=== PATIENT | female | born 1965 | race Two or more races ===

== ENCOUNTER 2017-01-05 10:07 | Day surgery (SDC) | payer OTHER ==
[~2017-01-05] VITALS: Ht 160 cm; Wt 68.8 kg
[2017-01-05 11:25] VITALS: Ht 160 cm; Wt 68.8 kg
[2017-01-05] MEDS ORDERED: [UNRECOGNIZED DRUG - OTHER] (11:30)
[2017-01-05 11:51] VITALS: BP 122/64; PULSE 73; RESP 14
[2017-01-05] MEDS ORDERED: FENTAnyl 50 MCG/ML VIAL ONE (12:30)
[2017-01-05] MEDS ORDERED: MIDAZOLAM 1 MG/ML 2 ML INJ ONE ×3 (12:30)
[2017-01-05 12:50] VITALS: BP 109/62; PULSE 70; RESP 18
--- NOTE | 2017-01-06 07:25 | GILP ---
DATE OF PROCEDURE: 01/05/2017 NAME OF PROCEDURE: Colonoscopy and biopsy and tattooing. PREOPERATIVE DIAGNOSIS: Screening colonoscopy to rule out colon polyps. POSTOPERATIVE DIAGNOSES: 1. Nodular rectum, biopsy was done. 2. Polypoid fold noted measuring about 2 cm in length at the hepatic flexure. Biopsy was done, and tattooing was performed. DESCRIPTION OF PROCEDURE: After the informed written consent was obtained, the patient was asked to lie on the left lateral side. A total of 5 mg Versed and 75 mcg of fentanyl was given as intraveno us anesthesia. When the patient became somnolent, the Olympus video colonoscope was introduced into the rectum and scope was advanced all the way to the cecum. The rectum showed evidence of a superficial nodular mu cosa in the localized area. Biopsies were done. Hepatic flexure showed evidence of a 2 cm elliptic al type of polypoid fold with erythema noted on the mucosa of this fold. Biopsy was done, and tatto oing also was done at this area by using the SPOT. The cecum with terminal ileum and appendiceal op ening and ileocecal valve all appeared normal. Endoscope at this time was withdrawn. On the way ou t, retroflexion was performed. No internal hemorrhoids were noted. On the way out, minimal externa l hemorrhoids were noted, and the procedure was terminated. PLAN: Recommend wait for the pathology report. Dictated By: DARIA RAY/EPIFANIO Conf#: [id number] DID#: [id number]
== END 2017-01-05 15:23 | disposition home or self-care (01) ==
LOC: GIL 10:07
PROVIDERS: ATTEND Internal Medicine Gastroenterology
DX: Z12.11 Encounter for screening for malignant neoplasm of colon (principal); K63.5 Polyp of colon
CPT/HCPCS: 45380; 45381; 88305; J2250; J3010; Z7610